=== PATIENT | female | born 1995 | race African-American/Black ===

== ENCOUNTER 2018-09-12 20:58 | Emergency (ER) | payer OTHER ==
[~2018-09-12] VITALS: Ht 175.3 cm; Wt 95.9 kg
[~2018-09-12 20:58] MED LIST: CEPH500 PO; ONDA4 PO; TRAM50TA4 PO
[2018-09-12 21:15] VITALS: BP 117/50
[2018-09-12] MEDS ORDERED: LIDOCAINE/PF 1% 2 ML VIAL IM ONE (23:00)
[2018-09-12] MEDS ORDERED: CefTRIAXone SODIUM 1 GM/VIAL IM ONE (23:00)
[2018-09-12] MEDS ORDERED: SULFAMETHOX/TRIMETH DS 800-160 MG/TABLET PO ONE (23:00)
[2018-09-12] MEDS ORDERED: TraMADol HCL 50 MG TABLET PO ONE (23:00)
[2018-09-12] MEDS ORDERED: IBUPROFEN 600 MG TABLET PO ONE (23:00)
== END 2018-09-12 23:52 | disposition home or self-care (01) ==
LOC: EMS 21:04
DX: L03.116 Cellulitis of left lower limb (principal); Z91.040 Latex allergy status
CPT/HCPCS: 96372; 99284; J0696; J3490